=== PATIENT | female | born 1980 | race Caucasian/White ===

== ENCOUNTER 2017-03-06 20:29 | Emergency (ER) | payer SELFPAY ==
[2017-03-06 20:38] VITALS: BP 137/94
[2017-03-06 20:49] LABS: Hematocrit 39.1 % (30.3-42.9); Hemoglobin 13.1 gm/dl (10.1-14.3); Mean Corpuscular HGB Conc 34 % (30-34); Mean Corpuscular Hemoglobin 32 pg (28-32); Mean Corpuscular Volume 95 fl (79-97); Platelet Count 215 K/mm3 (140-440); Red Blood Count 4.13 M/mm3 (3.65-5.03); White Blood Count 8.9 K/mm3 (4.5-11.0)
[2017-03-06 21:09] LABS: Anion Gap 17 mmol/L; Blood Urea Nitrogen 10 mg/dL (7-17); Carbon Dioxide 22 mmol/L (22-30); Chloride 100.9 mmol/L (98-107); Glucose 117 mg/dL (65-100); Potassium 3.6 mmol/L (3.6-5.0); Sodium 136 mmol/L (137-145)
[2017-03-06 21:25] LABS: Bacteria,Urine 1+ /HPF (Negative); Bilirubin,Urine NEG (Negative); Blood,Urine LG (Negative); Ketones,Urine NEG (Negative); Leukocyte Esterase,Urine LG (Negative); Mucus,Urine FEW /HPF; Nitrite,Urine NEG (Negative); Protein,Urine <15 mg/dL mg/dL (Negative); Urobilinogen,Urine < 2.0 mg/dL (<2.0)
== END 2017-03-06 20:45 | disposition left against medical advice (07) ==
LOC: ED 20:29
DX: K92.1 Melena (principal); N93.8 Other specified abnormal uterine and vaginal bleeding; Z53.21 Procedure and treatment not carried out due to patient leaving prior to being seen by health care provider
CPT/HCPCS: 36415; 80048; 81001; 81025; 85027

== ENCOUNTER 2017-07-18 08:30 | Emergency (ER) | payer SELFPAY ==
--- NOTE | 2017-07-18 11:42 | Emergency Department Report ---
HPI - General Chief Complaint: Upper Respiratory Infection Time Seen by Provider: 07/18/17 11:41 - HPI HPI: Patient reports that she has been having cold-like symptoms for 2 weeks. She says she's been taking [id number] medication such as Mucinex without any relief. She denies any fever or chills. Denies any nausea or vomiting. She reports cough. She said it started with her have been sinus congestion, runny nose and stuffy feeling in her ears and then progressed to coughing is worse at night and chest congestion. She denies any shortness of breath or chest pain. Last menstrual period was 06/22/2017. Denies any dizziness or headache. Patient reports that she has a history of migraine headaches. Pain is 0-10 at present. ED Past Medical Hx - Past Medical History Previous Medical History?: Yes Hx Headaches / Migraines: Yes - Surgical History Past Surgical History?: No - Family History Family history: no significant - Social History Smoking Status: Never Smoker Substance Use Type: None - Medications Home Medications: Home Medications Medication Instructions Recorded Confirmed Last Taken Type Amoxicillin [Trimox CAP] 2 tab PO BID #40 capsule 06/05/14 Unknown Rx HYDROcodone/APAP 5-325 [[place] 1 each PO Q6HR PRN #10 tablet 06/05/14 Unknown Rx 5/325] Ondansetron [Zofran Odt] 4 mg PO Q6H PRN #10 tab.rapdis 06/05/14 Unknown Rx Prednisone [Prednisone 5 mg (6-Day 5 mg PO .TAPER #1 tab.ds.pk 06/05/14 Unknown Rx Pack, 21 Tabs)] Butalbit/Acetamin/Caff/Codeine 1 cap PO Q6HR PRN #30 cap 05/20/15 Unknown Rx [Fioricet/Codeine 01-425-18-30] Promethazine [Phenergan TAB] 25 mg PO Q6HR PRN #15 tab 05/20/15 Unknown Rx ALBUTEROL Inhaler [ProAir HFA 2 puff IH QID PRN #1 inhalation 07/18/17 Unknown Rx Inhaler] Amoxicillin/K Clav Tab [Augmentin 1 tab PO Q12HR #20 tab 07/18/17 Unknown Rx 875 mg] Cetirizine HCl [ZyrTEC] 10 mg PO QAM #14 capsule 07/18/17 Unknown Rx Fluticasone [Flonase] 1 spray NS QDAY #1 bottle 07/18/17 Unknown Rx predniSONE [Deltasone] 20 mg PO BID #5 tab 07/18/17 Unknown Rx ED Review of Systems ROS: Stated complaint: COUGH Other details as noted in HPI Comment: All other systems reviewed and negative Constitutional: no symptoms reported Eyes: denies: eye pain, eye discharge, vision change ENT: congestion. denies: ear pain, throat pain, dental pain Respiratory: cough, wheezing. denies: SOB at rest, stridor Cardiovascular: denies: chest pain, palpitations, edema, syncope Gastrointestinal: denies: abdominal pain, nausea, vomiting Musculoskeletal: denies: back pain, arthralgia, myalgia Skin: denies: rash Neurological: denies: headache, weakness, numbness, paresthesias, confusion, abnormal gait, vertigo Physical Exam - Physical Exam Vital Signs: Vital Signs 07/18/17 13:01 Pulse Rate 129 H Respiratory 18 Rate Blood Pressure 129/86 [Right] O2 Sat by Pulse 98 Oximetry General: This is a 37-year-old female well-nourished well-developed in no acute distress. Physical Exam: Head: Normocephalic, atraumatic, no abrasion, no bruising and no contusion. Eyes: Biateral pupils equal and reactive to light, bilateral EOM intact.. Bilateral conjunctival and sclera without injection, normal accommodation. Ears: Bilateral EAC without any redness drainage or swelling, bilateral TM congested without erythema ,bilateral tragus is normal and nontender. No auricular abnormality. No Mastoid bones tenderness. Nose: Moist,positive erythema and congested with clear drainage. No frontal or maxillary sinus tenderness. Mouth: Moist without any pharyngeal exudate or erythema Uvula is midline and oral airways patent. \ tongue is normal Neck: Supple, Positive Cervical adenopathy, full range of motion and no C-spine tenderness. No swelling or tracheal deviation Cardiovascular: S1, S2. Regular rate and rhythm. No murmur. Capillary refill is less then 3 seconds. Lungs: Had wheezing to upper lung alonzo ,No rhonchi, or rales. No chest wall tenderness. Normal work of breathing without any use of accessory muscles. Dry cough MSK: Strength 5/5 in all extremities. No joint deformity or crepitus. Normal inspection. Full range of motion to all extremities Extremities: No clubbing, cyanosis or edema. +2 pulses. No neurovascular compromise Skin: Clean, dry and intact. No rash or lesions. Psych: Normal mood and behavior. ED Course Vital Signs 07/18/17 13:01 Pulse Rate 129 H Respiratory 18 Rate Blood Pressure 129/86 [Right] O2 Sat by Pulse 98 Oximetry Vital Signs 07/18/17 07/18/17 13:01 13:06 Pulse Rate 129 H 88 Respiratory 18 18 Rate Blood Pressure 129/86 [Right] O2 Sat by Pulse 98 Oximetry Vital Signs 07/18/17 07/18/17 09:00 13:09 Temperature 97.9 F Pulse Rate 129 H 88 Respiratory 18 18 Rate Blood Pressure 129/86 [Right] O2 Sat by Pulse 98 Oximetry - Reevaluation(s) Reevaluation #1: 07/18/17 13:12 Patient given albuterol 2.5 mg and Atrovent 0.5 mg nebulizer. She was also given Deltasone 60 mg by mouth for acute bronchitis. Upon reevaluation, patient lung sounds better. ED Medical Decision Making - Medical Decision Making ED course: Patient here complaining of upper respiratory tract infection to started 2 weeks ago that's not progressing into chest congestion and cough. She states she tried [id number] medication but it didn't help. Physical findings for acute bronchitis, acute cough and sinus inflammation. Patient was treated with albuterol 2.5 mg and Atrovent 0.5 mg nebulizer with releif of wheezing to lungs. She was also given Deltasone 60 mg by mouth. Diagnosis and treatment plan discussed with patient and she is in agreement. Discharged home in stable condition with prescription for all. Albuterol inhaler, prednisone, Augmentin, Zyrtec and Flonase. Critical care attestation.: If time is entered above; I have spent that time in minutes in the direct care of this critically ill patient, excluding procedure time. ED Disposition Clinical Impression: Cough Acute bronchitis Qualifiers: Bronchitis organism: unspecified organism Qualified Code(s): J20.9 - Acute bronchitis, unspecified Acute inflammation of nasal sinus Qualifiers: Sinusitis location: unspecified location Recurrence: not specified as recurrent Qualified Code(s): J01.90 - Acute sinusitis, unspecified Disposition: -01 TO HOME OR SELFCARE Is pt being admited?: No Does the pt Need Aspirin: No Condition: Stable Instructions: Acute Bronchitis (ED), Acute Cough (ED), Sinusitis (ED) Additional Instructions: Please increase your fluid intake Take medication as prescribed follow up with the primary care physician in 2-3 days Prescriptions: ALBUTEROL Inhaler [ProAir HFA Inhaler] 2 puff IH QID PRN #1 inhalation PRN Reason: COUGH AND WHEEZING Amoxicillin/K Clav Tab [Augmentin 875 mg] 1 tab PO Q12HR #20 tab Cetirizine HCl [ZyrTEC] 10 mg PO QAM #14 capsule Fluticasone [Flonase] 1 spray NS QDAY #1 bottle predniSONE [Deltasone] 20 mg PO BID #5 tab Referrals: PRIMARY CARE, [Primary Care Provider] - 2-3 Days Forms: Work/School Release Form(ED)
[2017-07-18] MEDS ORDERED: PROVENTIL IH ONE (12:26)
[2017-07-18] MEDS ORDERED: ATROVENT IH ONE (12:26)
[2017-07-18] MEDS ORDERED: DELTASONE PO ONE (12:26)
[2017-07-18 13:02] VITALS: BP 129/86
== END 2017-07-18 13:35 | disposition home or self-care (01) ==
LOC: ED 08:30
DX: J20.9 Acute bronchitis, unspecified (principal); J01.90 Acute sinusitis, unspecified; G43.909 Migraine, unspecified, not intractable, without status migrainosus
CPT/HCPCS: 94640; 99282; J7512